=== PATIENT | male | born 1995 | race Two or more races ===

== ENCOUNTER 2018-04-19 12:37 | Observation (INO) | payer SELFPAY ==
[2018-04-19] VITALS (10 sets, daily range): BP systolic 125–152; BP diastolic 77–97
[~2018-04-19] VITALS: Ht 160 cm; Wt 90.7 kg
--- NOTE | 2018-04-19 12:39 | ER Report ---
History and Physical Time Seen By MD: 12:38 HPI/ROS CHIEF COMPLAINT: Right lower quadrant abdominal pain HISTORY OF PRESENT ILLNESS: Patient is a 22-year-old male here with complaints of right lower quadrant abdominal pain since this morning when he woke up. Patient reports 8 out of 10 pain which is cramping in nature localized to the right lower quadrant. Denies prior history of surgeries. Patient denies other medical problems aside from depression on Zoloft. He did take Mar[place] and Pepto-Bismol today and without relief of symptoms. Patient is afebrile, hemodynamically stable reporting increased bloating since this morning. Last m eal was prior to going to bed last night including chips and salsa, honeybun's. Patient did have an isolated episode of emesis. REVIEW OF SYSTEMS: Constitutional: No fever, + chills. Eyes: No discharge. ENT: No sore throat. Cardiovascular: No chest pain, no palpitations. Respiratory: No cough, no shortness of breath. Gastrointestinal: + RLQ abdominal pain, + nausea and vomiting. Genitourinary: No hematuria. Musculoskeletal: No back pain. Skin: No rashes. Neurological: No headache. Allergies: Coded Allergies: No Known Drug Allergies (Unverified , 04/19/18) Home Meds Reported Medications Sertraline Hcl (ZOLOFT) 50 Mg Tablet, 1 TAB PO QDAY, TAB 04/19/18 Constitutional Vital Sign - Last 24 Hours 04/19/18 12:50 Pulse 85 Resp 16 B/P (MAP) 156/93 Pulse Ox 96 O2 Delivery Room Air Physical Exam General Appearance: The patient is alert, has no immediate need for airway protection and no signs of toxicity. Non toxic, mild distress, uncomfortable appearing Eyes: Pupils equal and round no pallor or injection. ENT, Mouth: Mucous membranes are moist. Respiratory: There are no retractions, lungs are clear to auscultation. Cardiovascular: Regular rate and rhythm. Gastrointestinal: Abdomen is soft and + tender in the RLQ, no masses, bowel sounds normal. No rebound or guarding Neurological: No focal deicits Skin: Warm and dry, no rashes. Musculoskeletal: Neck is supple non tender. Extremities are nontender, nonswollen and have full range of motion. DIFFERENTIAL DIAGNOSIS: After history and physical exam differential diagnosis was considered for abdominal pain including but not limited to appendicitis, cholecystitis, gastritis and urinary tract infection. Medical Decision Making Data Points Result Diagram: 04/19/18 1305 04/19/18 1255 Laboratory Hematology Test 04/19/18 12:55 04/19/18 13:05 Sodium Level 140 mmol/L (137-145) Potassium Level 3.9 mmol/L (3.5-5.0) Chloride Level 107 mmol/L (98-107) Carbon Dioxide Level 21 mmol/L (22-30) Blood Urea Nitrogen 13 mg/dl (9-21) Creatinine 0.70 mg/dl (0.66-1.25) Glomerular Filtration Rate Calc > 60.0 Random Glucose 128 mg/dl (75-110) Calcium Level 9.3 mg/dl (8.4-10.2) Total Bilirubin 0.8 mg/dl (0.2-1.3) Aspartate Amino Transf (AST/SGOT) 46 U/L (0-35) Alanine Aminotransferase (ALT/SGPT) 82 U/L (0-56) Alkaline Phosphatase 81 U/L (0-126) C-Reactive Protein < 0.5 mg/dl (<1.0) Total Protein 7.9 g/dl (6.3-8.2) Albumin 4.7 g/dl (3.5-5.0) Lipase 42 U/L (23-300) Red Blood Count 6.26 M/uL (4.00-5.60) Mean Corpuscular Volume 82.8 fL (80.0-96.0) Mean Corpuscular Hemoglobin 28.1 pg (26.0-33.0) Mean Corpuscular Hemoglobin Concent 33.9 g/dL (32.0-36.0) Red Cell Distribution Width 13.9 % (11.5-14.5) Mean Platelet Volume 7.9 fL (7.2-11.1) Neutrophils (%) (Auto) 85.5 % (39.4-72.5) Lymphocytes (%) (Auto) 8.3 % (17.6-49.6) Monocytes (%) (Auto) 5.0 % (4.1-12.4) Eosinophils (%) (Auto) 0.8 % (0.4-6.7) Basophils (%) (Auto) 0.4 % (0.3-1.4) Nucleated RBC Relative Count (auto) 0.1 /100WBC Neutrophils # (Auto) 9.2 K/uL (2.0-7.4) Lymphocytes # (Auto) 0.9 K/uL (1.3-3.6) Monocytes # (Auto) 0.5 K/uL (0.3-1.0) Eosinophils # (Auto) 0.1 K/uL (0.0-0.5) Basophils # (Auto) 0.0 K/uL (0.0-0.1) Nucleated RBC Absolute Count (auto) 0.01 K/uL Urine Color Yellow Urine Clarity Clear Urine pH 5.0 pH (4.8-9.5) Urine Specific [place] 1.026 Urine Protein 100 mg/dL (NEGATIVE) Urine Glucose (UA) Negative mg/dL (NEGATIVE) Urine Ketones Negative mg/dL (NEGATIVE) Urine Blood Negative (NEGATIVE) Urine Nitrite Negative (NEGATIVE) Urine Bilirubin Negative (NEGATIVE) Urine Urobilinogen Negative mg/dL (0.2-1.9) Urine Leukocyte Esterase Negative (NEGATIVE) Urine RBC None /HPF (0-2/HPF) Urine WBC 1 /HPF (0-5/HPF) Urine Squamous Epithelial Cells None /LPF (</=FEW) Urine Bacteria Negative /HPF (NONE-FEW) Urine Hyaline Casts Few /LPF (NONE-FEW) Urine Mucus None /HPF (NONE-FEW) Chemistry Test 04/19/18 12:55 04/19/18 13:05 Glomerular Filtration Rate Calc > 60.0 Calcium Level 9.3 mg/dl (8.4-10.2) Total Bilirubin 0.8 mg/dl (0.2-1.3) Aspartate Amino Transf (AST/SGOT) 46 U/L (0-35) Alanine Aminotransferase (ALT/SGPT) 82 U/L (0-56) Alkaline Phosphatase 81 U/L (0-126) C-Reactive Protein < 0.5 mg/dl (<1.0) Total Protein 7.9 g/dl (6.3-8.2) Albumin 4.7 g/dl (3.5-5.0) Lipase 42 U/L (23-300) White Blood Count 10.7 k/uL (4.5-11.0) Red Blood Count 6.26 M/uL (4.00-5.60) Hemoglobin 17.6 g/dL (14.0-18.0) Hematocrit 51.8 % (42.0-52.0) Mean Corpuscular Volume 82.8 fL (80.0-96.0) Mean Corpuscular Hemoglobin 28.1 pg (26.0-33.0) Mean Corpuscular Hemoglobin Concent 33.9 g/dL (32.0-36.0) Red Cell Distribution Width 13.9 % (11.5-14.5) Platelet Count 208 K/uL (150-450) Mean Platelet Volume 7.9 fL (7.2-11.1) Neutrophils (%) (Auto) 85.5 % (39.4-72.5) Lymphocytes (%) (Auto) 8.3 % (17.6-49.6) Monocytes (%) (Auto) 5.0 % (4.1-12.4) Eosinophils (%) (Auto) 0.8 % (0.4-6.7) Basophils (%) (Auto) 0.4 % (0.3-1.4) Nucleated RBC Relative Count (auto) 0.1 /100WBC Neutrophils # (Auto) 9.2 K/uL (2.0-7.4) Lymphocytes # (Auto) 0.9 K/uL (1.3-3.6) Monocytes # (Auto) 0.5 K/uL (0.3-1.0) Eosinophils # (Auto) 0.1 K/uL (0.0-0.5) Basophils # (Auto) 0.0 K/uL (0.0-0.1) Nucleated RBC Absolute Count (auto) 0.01 K/uL Urine Color Yellow Urine Clarity Clear Urine pH 5.0 pH (4.8-9.5) Urine Specific [place] 1.026 Urine Protein 100 mg/dL (NEGATIVE) Urine Glucose (UA) Negative mg/dL (NEGATIVE) Urine Ketones Negative mg/dL (NEGATIVE) Urine Blood Negative (NEGATIVE) Urine Nitrite Negative (NEGATIVE) Urine Bilirubin Negative (NEGATIVE) Urine Urobilinogen Negative mg/dL (0.2-1.9) Urine Leukocyte Esterase Negative (NEGATIVE) Urine RBC None /HPF (0-2/HPF) Urine WBC 1 /HPF (0-5/HPF) Urine Squamous Epithelial Cells None /LPF (</=FEW) Urine Bacteria Negative /HPF (NONE-FEW) Urine Hyaline Casts Few /LPF (NONE-FEW) Urine Mucus None /HPF (NONE-FEW) Urinalysis Test 04/19/18 13:05 Urine Color Yellow Urine Clarity Clear Urine pH 5.0 pH (4.8-9.5) Urine Specific [place] 1.026 Urine Protein 100 mg/dL (NEGATIVE) Urine Glucose (UA) Negative mg/dL (NEGATIVE) Urine Ketones Negative mg/dL (NEGATIVE) Urine Blood Negative (NEGATIVE) Urine Nitrite Negative (NEGATIVE) Urine Bilirubin Negative (NEGATIVE) Urine Urobilinogen Negative mg/dL (0.2-1.9) Urine Leukocyte Esterase Negative (NEGATIVE) Urine RBC None /HPF (0-2/HPF) Urine WBC 1 /HPF (0-5/HPF) Urine Squamous Epithelial Cells None /LPF (</=FEW) Urine Bacteria Negative /HPF (NONE-FEW) Urine Hyaline Casts Few /LPF (NONE-FEW) Urine Mucus None /HPF (NONE-FEW) EKG/Imaging Imaging PATIENT NAME: Tan House : 1995 MR: [id number] V: [id number] EXAM DATE: [id number] ORDERING PHYSICIAN: SHERIN ODOM TECHNOLOGIST: Location: [facility] [place] Patient: Tan House : 1995 Visit/Account:[id number] Date of Sevice: 04/19/2018 CT ABDOMEN PELVIS W/ CON COMPARISON: None. HISTORY: Right lower quadrant abdominal pain. TECHNIQUE: Axial CT abdomen and pelvis with intravenous contrast. Coronal and sagittal reformats. One of the following dose optimization techniques was utilized in the performance of this exam: automated exposure control; adjustment of the mA and/or kV according to patient size; or use of iterative reconstruction technique. Specific details can be referenced in the facility's radiology CT exam operational policy. CONTRAST: 85 mL of IV Isovue-370. FINDINGS: LUNG BASES: Negative. LIVER: Diffuse hepatic steatosis. BILIARY: Negative. SPLEEN: Negative. PANCREAS: Negative. ADRENALS: Left adrenal nodule measuring 1.9 x 2.5 cm on image 34, statistically probably adenoma, nonspecific without dedicated imaging. Normal right adrenal. KIDNEYS: Negative. GI/MESENTERY: The proximal and mid appendix are mildly enlarged, measuring about 9 mm diameter distended with fluid with prominence of the wall. The tip of the appendix is normal in size. There is no significant stranding fat stranding but findings are concerning for early acute appendicitis. There is no free air, free fluid or abscess and there is additional bowel wall thickening or obstructi on. VASCULAR: Negative. LYMPH NODES: Negative. BLADDER: Negative. PELVIC ORGANS: Negative. BONES: Multilevel Schmorl's nodes. Otherwise negative. OTHER: Negative. IMPRESSION: 1. The proximal and mid appendix are larger than typical, and its wall is diffusely prominent. Tip of the appendix is normal. Although there is no adjacent inflammatory change at this time, findings are suspicious for early uncomplicated appendicitis. 2. Left adrenal nodule measuring 2.5 cm, statistically probably adenoma. ED Course/Re-evaluation ED Course Patient is a 22-year-old male here with complaints of right lower quadrant abdominal pain since this morning. Last meal was last night before bed. Patient reports cramping pain and mild bloating in the right lower quadrant with an episode of emesis and intermittent nausea. Patient denies prior history of s urgeries of the abdomen. He did pass a bowel movement yesterday which was normal. He did take Marquita[place] and Pepto-Bismol today without relief of symptoms. Patient is afebrile, hemodynamically stable at time of evaluation. Labs came back relatively unremarkable with a white blood cell count of 10,000, CRP negative however CT imaging identified a likely early appendicitis so labs may not be elevated due to the timeline of the appendicitis. I discussed the patient with Dr. Abernathy who recommended administration of fluids, Zosyn. Patient had declined fluids and analgesia initially and I updated him regarding these findings. Patient voiced understanding of plan. Decision was made to take the pa gregorio from the emergency department to the OR for surgical intervention. Type and screen was ordered. Decision to Disposition Date: Apr 19, 2018 Decision to Disposition Time: 14:42 Depart Departure Latest Vital Signs Vital Signs Date Time Temp Pulse Resp B/P (MAP) Pulse Ox O2 Delivery O2 Flow Rate FiO2 04/19/18 12:50 85 16 156/93 96 Room Air Impression: Primary Impression: Appendicitis Condition: Improved Disposition: ADMIT FROM ER TO OR SHERIN ODOM DO Apr 19, 2018 12:39
[2018-04-19] MEDS ORDERED: IOPAMIDOL 76% 100 ML INFUS BTL 100 ML ONE (13:15)
[2018-04-19 13:25] LABS: PLATELET COUNT, AUTOMATED 208 K/uL (150-450)
[2018-04-19] MEDS ORDERED: ONDANSETRON 4 MG/2 ML VIAL ONE ×2 (13:33→15:22)
[2018-04-19] MEDS ORDERED: ONDANSETRON 4 MG/2 ML VIAL IVP ONE (13:40)
--- NOTE | 2018-04-19 13:56 | RADIOLOGY IMAGING REPORT ---
FACILITY: [facility] - [place] PATIENT NAME: Tan House : 1995 MR: [id number] V: [id number] EXAM DATE: ORDERING PHYSICIAN: SHERIN ODOM TECHNOLOGIST: Location: [facility] Patient: Tan House : 1995 Visit/Account:[id number] Date of Sevice: 04/19/2018 ADDENDUM #1 Results were called to Dr. ODOM on 04/19/2018 1:53 PM. Report Dictated By: Wili Selby at 04/19/2018 2:53 PM Report E-Signed By: Wili Selby at 04/19/2018 2:[address] ABDOMEN PELVIS W/ CON COMPARISON: None. HISTORY: Right lower quadrant abdominal pain. TECHNIQUE: Axial CT abdomen and pelvis with intravenous contrast. Coronal and sagittal reformats. O ne of the following dose optimization techniques was utilized in the performance of this exam: autom ated exposure control; adjustment of the mA and/or kV according to patient size; or use of iterative reconstruction technique. Specific details can be referenced in the facility's radiology CT exam ope rational policy. CONTRAST: 85 mL of IV Isovue-370. FINDINGS: LUNG BASES: Negative. LIVER: Diffuse hepatic steatosis. BILIARY: Negative. SPLEEN: Negative. PANCREAS: Negative. ADRENALS: Left adrenal nodule measuring 1.9 x 2.5 cm on image 34, statistically probably adenoma, no nspecific without dedicated imaging. Normal right adrenal. KIDNEYS: Negative. GI/MESENTERY: The proximal and mid appendix are mildly enlarged, measuring about 9 mm diameter diste nded with fluid with prominence of the wall. The tip of the appendix is normal in size. There is no s ignificant stranding fat stranding but findings are concerning for early acute appendicitis. There is no free air, free fluid or abscess and there is additional bowel wall thickening or obstruction. VASCULAR: Negative. LYMPH NODES: Negative. BLADDER: Negative. PELVIC ORGANS: Negative. BONES: Multilevel Schmorl's nodes. Otherwise negative. OTHER: Negative. IMPRESSION: 1. The proximal and mid appendix are larger than typical, and its wall is diffusely prominent. Tip o f the appendix is normal. Although there is no adjacent inflammatory change at this time, findings ar e suspicious for early uncomplicated appendicitis. 2. Left adrenal nodule measuring 2.5 cm, statistically probably adenoma. Report Dictated By: Wili Selby at 04/19/2018 1:46 PM Report E-Signed By: Wili Selby at 04/19/2018 1:52 PM WSN:[id number]
[2018-04-19] MEDS ORDERED: FAMOTIDINE(*) 20MG/50ML PREMIX 50 ML IVPB ONE (14:05)
[2018-04-19] MEDS ORDERED: NORMOSOL R SOLN(*) 1000 ML BAG 1,000 ML IV ONE (14:05)
[2018-04-19] MEDS ORDERED: NS(*) 0.9% 1000 ML BAG 1,000 ML IV ONE (14:05)
[2018-04-19] MEDS ORDERED: PIPERACILLIN/TAZO*3.375GM VIAL 3.375 GM in NS(*) 0.9% 100 ML ADDVANT BAG 100 ML IVPB ONE ×2 (14:05→16:30)
[2018-04-19] MEDS ORDERED: SERT-1 PO (14:12)
--- NOTE | 2018-04-19 14:23 | EKG ---
FACILITY: [facility] - [place] PATIENT NAME: JOHANNE SILVA : [id number] MR: [id number] V: [id number] EXAM DATE: ORDERING PHYSICIAN: SHERIN ODOM TECHNOLOGIST: LORNE Test Reason : PREOP-APPENDICS Blood Pressure : / mmHG Vent. Rate : 100 BPM Atrial Rate : 100 BPM P-R Int : 138 ms QRS Dur : 090 ms QT Int : 358 ms P-R-T Axes : 050 043 082 degrees QTc Int : 461 ms Normal sinus rhythm Nonspecific T wave abnormality Prolonged QT Abnormal ECG No previous ECGs available Confirmed by Juan Pablo Tellez ([id number]) on 04/19/2018 2:46:11 PM Referred By: ILENE Confirmed By:Juan Pablo Dillon
[2018-04-19] MEDS ORDERED: DEXAMETHASONE SOD PHOS 10MG/ML ONE (15:22)
[2018-04-19] MEDS ORDERED: ROCURONIUM BROM 10 MG/ML 10 ML ONE (15:22)
[2018-04-19] MEDS ORDERED: PROPOFOL EMUL(*) 10MG/ML 20 ML 20 ML ONE (15:22)
[2018-04-19] MEDS ORDERED: KETAMINE HCL-NS 50 MG/5 ML SYR ONE (15:22)
[2018-04-19] MEDS ORDERED: LIDOCAINE MPF 1% 5 ML VIAL ONE (15:22)
[2018-04-19] MEDS ORDERED: fentaNYL CITR 100 MCG/2 ML AMP ONE ×2 (15:22→17:30)
[2018-04-19] MEDS ORDERED: BUPIVACAINE/EPI 0.5% 50ML VIAL INFIL ONE (15:31)
[2018-04-19] MEDS ORDERED: SUCCINYLCHOL CHL 200MG/10ML VL ONE (15:44)
[2018-04-19] MEDS ORDERED: SUGAMMADEX SOD 200 MG/2 ML SDV ONE (17:00)
[2018-04-19] MEDS ORDERED: HYDROmorphone HCL 2 MG/ML SDV IVP PRN (17:20)
--- NOTE | 2018-04-19 17:33 | Post Operative Progress Note ---
Post Operative Progress Note Date: Apr 19, 2018 Time: 17:27 Surgeon: ted adams md Stave Block Roller: none Anesthesia: gen, local dr. shaver Pre-Op Diagnosis: acute appendicitis Post-Op Diagnosis: same Findings: acute appendicitis Procedure(s): lap appy Specimen Removed:(May be N/A): appendix Complications: none Fluids: iv crystalloid Estimated Blood Loss: minimal Date OP Note Dictated: Apr 19, 2018 Time OP Note Dictated: 17:28 TOI ADAMS Apr 19, 2018 17:33
[2018-04-19] MEDS ORDERED: ONDANSETRON 4 MG/2 ML VIAL IVP PRN (18:35)
[2018-04-19] MEDS: traMADol 50 MG TAB PO PRN (18:47)
[2018-04-19] MEDS: PIPERACILLIN/TAZO*3.375GM VIAL 3.375 GM in NS(*) 0.9% 100 ML ADDVANT BAG 100 ML IVPB SCH (21:27)
[2018-04-20 03:34] VITALS: BP 121/64
[2018-04-20] MEDS: PIPERACILLIN/TAZO*3.375GM VIAL 3.375 GM in NS(*) 0.9% 100 ML ADDVANT BAG 100 ML IVPB SCH ×3 (03:40→15:25)
--- NOTE | 2018-04-20 04:17 | OPERATIVE REPORT 1 ---
EVENT DATE: April 19, 2018 SURGEON: Glen Abernathy MD ANESTHESIOLOGIST: Jhony Peñaloza DO ANESTHESIA: General with local. PREOPERATIVE DIAGNOSIS Acute appendicitis. POSTOPERATIVE DIAGNOSIS Acute appendicitis. PROCEDURE PERFORMED Laparoscopic appendectomy. FLUIDS IV crystalloid. ESTIMATED BLOOD LOSS Minimal. SPECIMENS Appendix. COMPLICATIONS None. INDICATIONS FOR PROCEDURE This is a 22-year-old male with right lower quadrant pain since this morning. On physical exam, patient was tender to palpation in the right lower quadrant. He was stable. Imaging revealed findings consistent with acute appendicitis. Risks and benefits of the procedure were explained and consent was signed. DESCRIPTION OF PROCEDURE Patient was taken to the operating room and placed in the supine position. General anesthesia was administered per anesthesia team. Patient was prepped and draped in the normal sterile fashion. Local analgesia was injected in the dermis above the umbilicus, and a 5 mm vertical incision was made. The umbilical stump was grasped and elevated. The Veress needle was inserted. Pneumoperitoneum was achieved. The Veress needle was removed. A 5 mm port was advanced. After injecting local analgesia under direct vision, a 5 mm suprapubic port and 12 mm left lower quadrant port were placed. I inspected the abdomen. There was a very tiny punctate area of bleeding on the sigmoid colon. This may have been due to the Veress needle scraping it. I found no evidence of a puncture through the colon wall, including on the reverse side. However, to be on the safe side, I placed a 3-0 Vicryl [id number] stitch over this small lesion. The appendix was quickly identified. It was inflamed consistent with acute appendicitis. I created a window in the mesoappendix at the base of the appendix. I then used LigaSure to divide the mesoappendix. I then fired a laparoscopic 45 mm blue load from the laparoscopic linear stapler across the base of the appendix. The appendix was removed with an Endo Catch bag through the left lower quadrant port site. I inspected the right lower quadrant. It was irrigated and suctioned. Irrigant returned clear. Hemostasis was assured. Staple line was confirmed to be intact. I then irrigated the lower abdomen and submerged the area where I had placed the stitch, and there was no bubbling and no bleeding. Fascial closure device with an 0 Vicryl stitch x2 was used to close the fascia of the left lower quadrant port site. Suprapubic port was removed under direct vision. Hemostasis was assured. Pneumoperitoneum was relieved. Final port was removed. All skin incisions were closed with 4-0 Monocryl subcuticular stitches. More local analgesia was injected. Appropriate dressings were applied. The patient tolerated the procedure well. There were no complications. [facility]
[2018-04-20 05:58] LABS: PLATELET COUNT, AUTOMATED 218 K/uL (150-450)
[2018-04-20 06:32] VITALS: BP 131/68
--- NOTE | 2018-04-20 08:20 | General Surgery Progress Note ---
Subjective Progress Notes Subjective pain controlled. vick clears. Physical Exam Vital Signs Date Time Temp Pulse Resp B/P (MAP) Pulse Ox O2 Delivery O2 Flow Rate FiO2 04/20/18 06:32 99.1 92 12 131/68 (89) 90 Room Air 04/19/18 23:00 1.0 Intake and Output 04/20/18 07:00 Intake Total 3170 ml Balance 3170 ml Intake Oral 20 ml IV Total 3150 ml # Voids 1 General Appearance: No Acute Distress Cardiovascular: Other (reg rate) GI: Other (soft) Result Diagram: 04/20/1839 04/20/18538 Assessment and Plan Problems: (1) Appendicitis Status: Acute Assessment & Plan: no acute events. advance diet. home soon. Exam Sepsis Risk: No Definite Risk TOI BOLAÑOS Apr 20, 2018 08:20
[2018-04-20] MEDS ORDERED: TRAM-420 PO (08:28)
[2018-04-20] MEDS ORDERED: ENOXAPARIN 40 MG/0.4ML SYR SC SCH (09:00)
[2018-04-20] MEDS: traMADol 50 MG TAB PO PRN ×2 (09:11→17:26)
[2018-04-20 10:58] VITALS: BP 126/69
[2018-04-20 13:37] VITALS: Ht 160 cm; Wt 90.7 kg
[2018-04-20 15:24] VITALS: BP 102/57
== END 2018-04-20 18:03 | disposition home or self-care (01) ==
LOC: ER 12:50 → OR 14:07 → MED 18:10
PROVIDERS: ADMIT Surgery; ATTEND Surgery
DX: K35.80 Unspecified acute appendicitis (principal)
CPT/HCPCS: 36415; 44970; 74177; 81001; 83690; 85025; 86140; 86850; 86900; 86901; 88304; 93005; 96365; 96372; 99284; G0378; J0330; J1100; J1650; J2001; J2405; J2543; J2704; J3010; J3490; J7030; J7050; Q9967; 82040; 82247; 82310; 82374; 82435; 82565; 82947; 84075; 84132; 84155; 84295; 84450; 84460; 84520